=== PATIENT | male | born 1985 | race Caucasian/White ===

== ENCOUNTER 2019-06-24 11:00 | Emergency (ER) | payer BC ==
[2019-06-24 11:20] VITALS: BP 120/73
[2019-06-24 12:01] LABS: Influenza A Molecular Negative (Negative); Influenza B Molecular Negative (Negative)
--- NOTE | 2019-06-24 13:18 | ED ---
Influenza-Like Illness - HPI Summary HPI Summary: 33 yo WM p/w f/c/bodyaches associated with minor cough but bodyaches is worsening in the last 2 days - History of Current Complaint Chief Complaint: UCGeneralIllness Time Seen by Provider: 06/24/19 11:26 Hx Obtained From: Patient Onset/Duration: Gradual Onset Severity: Moderate Associated Signs & Symptoms: Myalgia, Cough, Sore Throat - Risk Factors Influenza Risk Factors: Negative - Allergy/Home Medications Allergies/Adverse Reactions: Allergies Allergy/AdvReac Type Severity Reaction Status Date / Time No Known Allergies Allergy Verified 06/24/19 11:20 Home Medications: Home Medications Dm/Acetaminophen/Doxylamine [Night Cold-Flu Relief Liq Gel] 1 each PO DAILY PRN 06/24/19 [History Confirmed 06/24/19] Naproxen [Naproxen 500 mg tab] 500 mg PO BID 10 Days #20 tablet 06/24/19 [Rx] Oseltamivir CAP* [Tamiflu CAP*] 75 mg PO BID 5 Days #10 cap 06/24/19 [Rx] PMH/Surg Hx/FS Hx/Imm Hx Previously Healthy: Yes Infectious Disease History: No Infectious Disease History: Denies: Traveled Outside the [place] in Last 30 Days - Family History Known Family History: Positive: Non-Contributory - Social History Alcohol Use: Weekly Substance Use Type: Reports: None Smoking Status (MU): Never Smoked Tobacco Review of Systems Positive: Fever, Chills, Fatigue Eyes: Negative ENT: Negative Cardiovascular: Negative Respiratory: Negative Gastrointestinal: Negative Genitourinary: Negative Musculoskeletal: Negative Skin: Negative Neurological/Mental Status: Negative Positive: Headache Psychological: Normal All Other Systems Reviewed And Are Negative: Yes Physical Exam - Summary Physical Exam Summary: Vital Signs Reviewed: Yes Gen: NAD Eye Exam: Normal Eyes: Positive: Conjunctiva Clear ENT: Normal ENT inspection Neck: Supple Respiratory: Lungs clear, Normal breath sounds. Negative: Crackles, Rhonchi, Stridor, Wheezing Cardiovascular Exam: Normal, RRR, S1, S2 Abdomen: NT/ND Musculoskeletal Exam: Normal Neurological Exam: Normal Psychological Exam: Normal Skin Exam: Normal Vital Signs On Initial Exam: Initial Vitals Temp Pulse Resp BP Pulse Ox 36.8 C 78 18 120/73 199 06/24/19 11:16 06/24/19 11:16 06/24/19 11:16 06/24/19 11:16 06/24/19 11:16 Diagnostics - Vital Signs Vital Signs Temp Pulse Resp BP Pulse Ox 06/24/19 11:16 36.8 C 78 18 120/73 199 - Laboratory Lab Results: Lab Results 06/24/19 06/24/19 Range/Units 11:47 11:49 Influenza A (Rapid) Negative (Negative) Influenza B (Rapid) Negative (Negative) Group A Strep Rapid Negative (Negative) Lab Statement: Any lab studies that have been ordered have been reviewed, and results considered in the medical decision making process. Flu Symptom Course/Dx - Course Assessment/Plan: rapid flu and rapid strep neg but still within window for flu- like illness, will tx with tamiflu - Diagnoses Provider Diagnoses: Viral syndrome Discharge ED - Sign-Out/Discharge Documenting (check all that apply): Patient Departure All imaging exams completed and their final reports reviewed: No Studies - Discharge Plan Condition: Stable Disposition: HOME Prescriptions: Naproxen [Naproxen 500 mg tab] 500 mg PO BID 10 Days #20 tablet Oseltamivir CAP* [Tamiflu CAP*] 75 mg PO BID 5 Days #10 cap Patient Education Materials: Viral Syndrome (ED) - Billing Disposition and Condition Condition: STABLE Disposition: Home
== END 2019-06-24 13:15 | disposition home or self-care (01) ==
LOC: UCEAST 11:00
DX: B34.9 Viral infection, unspecified (principal)
CPT/HCPCS: 87651; 99202; G0463